=== PATIENT | female | born 1960 | race Caucasian/White ===

== ENCOUNTER 2017-02-08 10:39 | Emergency (ER) | payer MEDICARE ==
[2017-02-08 10:41] VITALS: BP 180/103; PULSE 91; RESP 18; TEMP 98.8; O2SAT 100
--- NOTE | 2017-02-08 11:05 | PD ---
HPI Chief Complaint: Hypertension Time Seen by Provider: 11:05 Travel History International Travel<30 days: No Contact w/Intl Traveler<30days: No Traveled to known affect area: No History of Present Illness HPI 56-year-old female with history of hypertension presents to the ED for evaluation of high blood pressures. Patient states that she was seeing her therapist who noted hypertension in her office and sent her to the emergency room for further evaluation. On presentation the patient states that she is feeling well. She denies headache, dizziness, blurred vision, difficulties with gait, chest pain, palpitations, shortness of breath, abdominal pain, nausea , vomiting, dysuria. She states that she takes Metoprolol ER 50 mg nightly for the last 6 months. She is unsure what her normal blood pressures run. She's been told by her primary care provider that she has "white coat syndrome." She states that she has follow-up with her primary care provider on February 13. PFSH Past Medical History Arthritis: Yes Cardiac Catheterization: Yes (CARDIAC ABLATION ) Diminished Hearing: No Fibromyalgia: Yes Hypertension: Yes Musculoskeletal: Yes (CHRONIC BACK PAIN ) ?: Not Menopausal: Yes Past Surgical History Section: Yes Gynecologic Surgery: Yes Social History Alcohol Use: Yes (OCC) Tobacco Use: Yes (15 CIG PER DAY ) Substance Use: No Allergies-Medications (Allergen,Severity, Reaction): Coded Allergies: [place] (Verified Allergy, Severe, 02/08/17) Sulfa (Verified Allergy, Severe, 02/08/17) Tetanus Toxoid (Verified Allergy, Severe, 02/08/17) Reported Meds & Prescriptions Reported Meds & Active Scripts Active Reported Meloxicam 15 Mg Tab 15 Mg PO DAILY Lamictal (Lamotrigine) 100 Mg Tab 100 Mg PO HS Metoprolol Succinate ER 24 HR (Metoprolol Succinate) 50 Mg Tab 50 Mg PO DAILY Sertraline (Sertraline HCl) 100 Mg Tab 100 Mg PO DAILY Flexeril (Cyclobenzaprine HCl) 10 Mg Tab 10 Mg PO TID Review of Systems Except as stated in HPI: all other systems reviewed are Neg Physical Exam Narrative GENERAL: Well-nourished, well-developed white female in no acute distress. SKIN: Focused skin assessment warm/dry. HEAD: Normocephalic. EYES: No scleral icterus. No injection or drainage. PERRLA. NECK: Supple, trachea midline. No JVD or lymphadenopathy. CARDIOVASCULAR: Regular rate and rhythm without murmurs, gallops, or rubs. 2+ DP and radial pulses bilaterally. RESPIRATORY: Breath sounds clear and equal bilaterally. No accessory muscle use. GASTROINTESTINAL: Abdomen soft, non-tender, nondistended. Active bowel sounds MUSCULOSKELETAL: No cyanosis, or edema. NEUROLOGICAL: Awake and alert. Cranial nerves II through XII intact. Motor and sensory grossly within normal limits. 5/5 muscle strength in all muscle groups. Normal speech. No pronator drift. No ataxia. BACK: Nontender without obvious deformity. No CVA tenderness. Data Data Last Documented VS Vital Signs Date Time Temp Pulse Resp B/P Pulse Ox O2 Delivery O2 Flow Rate FiO2 02/08/17 11:50 89 16 149/89 96 Room Air 02/08/17 10:41 98.8 MDM Medical Decision Making Medical Screen Exam Complete: Yes Emergency Medical Condition: Yes Differential Diagnosis Hypertension versus whitecoat syndrome versus renal failure versus hypertensive urgency versus hypertensive emergency versus other Narrative Course 56-year-old female PMH of HTN presents to the ED for evaluation of high blood pressures. Patient states that her therapist noted hypertension in the office today, sent her to the ED for further evaluation. Patient asymptomatic on presentation. She endorses compliance with her 50 mg metoprolol ER nightly. Physical exam is reassuring. Recheck of blood pressure improved to 159/89. Patient has follow-up with her PCP this week. She is instructed to keep a journal of her blood pressures, present at follow-up. Patient is very happy with this care plan. She stable and discharged home. Diagnosis Primary Impression: Chronic hypertension Referrals: Primary Care Physician Patient Instructions: Chronic Hypertension (ED), General Instructions Additional Instructions: Rest, hydrate. Keep a journal of your blood pressures and present it to your primary care provider at follow up. Follow up with your PCP as planned. Return to the ED for any urgent or emergent medical condition. Disposition: DISCHARGE HOME Condition: Stable Carmelita Meza February 08, 2017 11:05
[2017-02-08] MEDS ORDERED: CYCL1TAB29 PO (11:10)
[2017-02-08] MEDS ORDERED: QUET1TAB8 PO (11:10)
[2017-02-08] MEDS ORDERED: MELO-1 PO (11:10)
[2017-02-08] MEDS ORDERED: METO50TA11 PO (11:10)
[2017-02-08] MEDS ORDERED: SERT-129 PO (11:10)
[2017-02-08] MEDS ORDERED: LAMO100 PO (11:10)
[2017-02-08 11:12] VITALS: BP 172/96
--- NOTE | 2017-02-08 11:40 | PD ---
Data Data Last Documented VS Vital Signs Date Time Temp Pulse Resp B/P Pulse Ox O2 Delivery O2 Flow Rate FiO2 02/08/17 11:12 172/96 02/08/17 10:41 98.8 91 18 100 Room Air MDM Supervised Visit with MENDOZA: Yes Narrative Course The history, exam, and medical decision-making in the associated mid-level provider note were completed with my assistance. I reviewed and agree with the findings presented. I attest that I had a [id number] encounter with the patient on the same day, and personally performed and documented my assessment and findings in the medical record. *My assessment and Findings: 56 year-old woman with a symptomatic elevated blood pressure. Improving with reassurance. Recommend outpatient follow-up. Diagnosis Primary Impression: Chronic hypertension Referrals: Primary Care Physician Patient Instructions: General Instructions, Chronic Hypertension (ED) Additional Instruction: Rest, hydrate. Keep a journal of your blood pressures and present it to your primary care provider at follow up. Follow up with your PCP as planned. Return to the ED for any urgent or emergent medical condition. Disposition: 01 DISCHARGE HOME Condition: Stable Christiano Calvin MD February 08, 2017 11:40
[2017-02-08 11:50] VITALS: BP 149/89; PULSE 89; RESP 16; O2SAT 96
== END 2017-02-08 11:54 | disposition home or self-care (01) ==
LOC: NEPD 10:39
DX: I10 Essential (primary) hypertension (principal); M79.7 Fibromyalgia; F17.210 Nicotine dependence, cigarettes, uncomplicated
CPT/HCPCS: 99283

== ENCOUNTER 2017-03-25 20:33 | Emergency (ER) | payer MEDICARE ==
[~2017-03-25] VITALS: Ht 157.5 cm; Wt 59.3 kg
[~2017-03-25 20:33] MED LIST: CYCL1TAB29 PO; LAMO100 PO; MELO-1 PO; METO50TA11 PO; SERT-129 PO
[2017-03-25 20:35] VITALS: BP 133/90; PULSE 100; RESP 18; TEMP 98.1; O2SAT 99
--- NOTE | 2017-03-25 20:50 | PD ---
HPI . Dizziness Chief Complaint: Dizziness Time Seen by Provider: 20:41 Travel History International Travel<30 days: No Contact w/Intl Traveler<30days: No Traveled to known affect area: No History of Present Illness HPI Patient presents with a chief complaint of dizziness. She reports that she fell and struck her right forehead on February 16. She did not have a loss of consciousness but developed some significant facial bruising following the fall. She was seen by her primary care physician who did a CT of her head. It reportedly showed a hematoma. I am assuming that it was a scalp hematoma. Patient states that she was diagnosed with a concussion. She states that she was doing pretty well until yesterday when she bent over to pick something up and became very dizzy. PFSH Past Medical History Arthritis: Yes Cardiac Catheterization: Yes (CARDIAC ABLATION ) Cardiovascular Problems: Yes (ABLATION FOR AFIB) Diminished Hearing: No Fibromyalgia: Yes Hypertension: Yes Musculoskeletal: Yes (CHRONIC BACK PAIN ) ?: Not LMP: OCT 02 2016 Menopausal: Yes Past Surgical History Section: Yes Gynecologic Surgery: Yes Social History Alcohol Use: Yes (OCC) Tobacco Use: Yes (15 CIG PER DAY ) Substance Use: No Allergies-Medications (Allergen,Severity, Reaction): Coded Allergies: [place] (Verified Allergy, Severe, 03/25/17) Sulfa (Verified Allergy, Severe, 03/25/17) Tetanus Toxoid (Verified Allergy, Severe, 03/25/17) Reported Meds & Prescriptions Reported Meds & Active Scripts Active Reported Alprazolam 1 Mg Tab 1 Mg PO Q8H PRN Fluticasone Nasal [employer] 50 Mcg/Act Naspr 100 Mcg EACH NARE DAILY 50 mcg/spray Spiriva Handihaler (Tiotropium Inh) 18 Mcg Cap 18 Mcg INH DAILY 1 capsule = 18 mcg Proair Hfa 8.5 GM Inh (Albuterol Sulfate) 90 Mcg/Act Aer 2 Puff INH Q4-6H PRN 108 mcg/actuation Lamotrigine 100 Mg Tab 100 Mg PO DAILY Sertraline (Sertraline HCl) 100 Mg Tab 150 Mg PO DAILY Hydroxyzine HCl 25 Mg Tab 25 Mg PO DAILY Metoprolol Succinate ER 24 HR (Metoprolol Succinate) 50 Mg Tab 50 Mg PO DAILY Review of Systems Except as stated in HPI: all other systems reviewed are Neg Eyes: No: Blurred Vision HENT: Positive: Lightheadedness, No: Headaches Physical Exam Narrative GENERAL: Awake and alert and in no acute distress. SKIN: Warm and dry. HEAD: Atraumatic. Normocephalic. She does still have some residual bruising on the right forehead. EYES: Pupils equal and round. Extraocular movements are intact. NECK: Trachea midline. C-spine is nontender. CARDIOVASCULAR: Regular rate and rhythm. RESPIRATORY: No accessory muscle use. MUSCULOSKELETAL: No obvious deformities. No edema. NEUROLOGICAL: Awake and alert. No obvious cranial nerve deficits. Motor grossly within normal limits. Normal speech. Gait and [id number] exam are normal. PSYCHIATRIC: Appropriate mood and affect; insight and judgment normal. Data Data Last Documented VS Vital Signs Date Time Temp Pulse Resp B/P Pulse Ox O2 Delivery O2 Flow Rate FiO2 03/25/17 20:50 94 18 99 Room Air 03/25/17 20:35 98.1 133/[address] Brain W/O Iv Contrast(Rout) (03/25/17 20:44) MDM Medical Decision Making Medical Screen Exam Complete: Yes Emergency Medical Condition: Yes Differential Diagnosis Differential diagnosis of dizziness includes but is not limited to vertigo, dehydration, acute blood loss, sepsis, ACS Narrative Course Patient presents complaining with dizziness. She reports a fall on February 16 with head trauma. She states that she was subsequently diagnosed with a concussion. I suspect that the dizziness is postconcussive but we'll do a CT to rule out a subacute subdural hematoma. Last Impressions Head CT 03/25/172043 Signed Impressions: Service Date/Time: Saturday, March 25, 2017 21:04 - CONCLUSION: Unremarkable noncontrast CT. Familia Cota MD Emergency Department evaluation reveals no emergency medical condition. The patient is stable for discharge to home. Diagnosis Primary Impression: Dizziness Patient Instructions: Dizziness (ED), General Instructions Disposition: DISCHARGE HOME Condition: Stable Kelly Ríos MD Mar 25, 2017 20:50
[2017-03-25] MEDS ORDERED: ALBUAER3 INH (21:03)
[2017-03-25] MEDS ORDERED: FLUT50SP EACH NARE (21:03)
[2017-03-25] MEDS ORDERED: HYDR-3133 PO (21:03)
[2017-03-25] MEDS ORDERED: SERT-129 PO (21:03)
[2017-03-25] MEDS ORDERED: SPIRCAP INH (21:03)
[2017-03-25] MEDS ORDERED: LAMO100T PO (21:03)
[2017-03-25] MEDS ORDERED: ALPR1TAB3 PO (21:03)
--- NOTE | 2017-03-25 21:22 | RADRPT ---
EXAM DATE/TIME: 03/25/2017 21:04 [facility] COMPARISON: No previous studies available for comparison. INDICATIONS : Status post fall february 16. On going pain and dizziness. RADIATION DOSE: 67.48 CTDIvol (mGy) MEDICAL HISTORY : Chronic obstructive pulmonary disease. AFIB SURGICAL HISTORY : None. ENCOUNTER: Initial ACUITY: 1 month PAIN SCALE: 8/10 LOCATION: Right temporal TECHNIQUE: Multiple contiguous axial images were obtained of the head. Using automated exposure control and adj ustment of the mA and/or kV according to patient size, radiation dose was kept as low as reasonably a chievable to obtain optimal diagnostic quality images. DICOM format image data is available electro nically for review and comparison. FINDINGS: CEREBRUM: The ventricles are normal for age. No evidence of midline shift, mass lesion, hemorrhage or acute in farction. No extra-axial fluid collections are seen. POSTERIOR FOSSA: The cerebellum and brainstem are intact. The 4th ventricle is midline. The cerebellopontine angle i s unremarkable. EXTRACRANIAL: The visualized portion of the orbits is intact. SKULL: The calvaria is intact. No evidence of skull fracture. CONCLUSION: Unremarkable noncontrast CT. Familia Cota MD on March 25, 2017 at 21:19 Board Certified Radiologist. This report was verified electronically.
[2017-03-25 22:10] VITALS: BP 126/82; PULSE 78; RESP 18; O2SAT 98
== END 2017-03-25 22:12 | disposition home or self-care (01) ==
LOC: PHED 20:33
DX: R42 Dizziness and giddiness (principal); I48.91 Unspecified atrial fibrillation; I10 Essential (primary) hypertension; M79.7 Fibromyalgia
CPT/HCPCS: 70450; 99284